=== PATIENT | female | born 1955 | race Hispanic/Latino ===

== ENCOUNTER → 2018-03-25 | Outpatient (CLI) | payer BC ==
--- NOTE | 2018-03-25 16:36 | Diagnostic Imaging Report ---
TECHNIQUE: Magnetic resonance imaging of the LEFT KNEE was performed WITHOUT injected contrast. HISTORY: Left knee pain COMPARISON: None available. FINDINGS: LIGAMENTS AND TENDONS: ACL: Intact PCL: Intact Collateral ligaments: Intact Iliotibial band: Unremarkable Popliteal tendon: Intact Extensor mechanism: Intact JOINT: Menisci: Medial: Horizontal tear of the body Lateral: Intact Articular Cartilage: Medial Compartment: Diffuse partial thickness cartilage loss Lateral Compartment: Diffuse partial thickness cartilage loss Patellofemoral Compartment: Diffuse curled loss with areas of full-thickness erosion and fissuring. Joint Fluid: Small joint effusion. BONE: No focal or infiltrative bone marrow replacing abnormality. No acute fracture. SOFT TISSUES: Otherwise, unremarkable. IMPRESSION: Medial meniscus horizontal tear to the body. Tricompartmental cartilage loss, patellofemoral compartment predominant. Signed by: Dr. Garrison Wiley M.D. on 03/25/2018 4:33 PM
== END ==
LOC: MRI 14:51
PROVIDERS: ATTEND Family Medicine
DX: S83.207A Unspecified tear of unspecified meniscus, current injury, left knee, initial encounter (principal)

== ENCOUNTER → 2018-04-09 | Outpatient (CLI) | payer BC ==
--- NOTE | 2018-04-09 14:47 | Diagnostic Imaging Report ---
History: Back and leg pain mainly on the right leg Comparison studies: None Technique: Sagittal, coronal and axial T2 , sagittal T1 and IR, axial spin density oblique. Intravenous contrast: None Findings: Number of lumbar vertebral bodies:5 Alignment: Mild grade 1 anterolisthesis of L5 over S1.No scoliosis. Pars defect is suspected on the left side of L5. Soft tissues: No T2 hyperintense inflammatory changes. Paraspinal muscles: No signal abnormalities. No atrophy. Lower thoracic cord:Normal in signal and morphology. The tip of the conus is at T12-L1. Cauda equina: No masses. No arachnoiditis. Vertebrae: Normal in height and signal intensity. No compression fractures, infection or neoplasm. Degenerative changes: L1-L2: No abnormalities. L2-L3: Disc degeneration with loss of T2 signal. Mild diffuse disc bulge without significant canal stenosis or foraminal narrowing. L3-L4: Disc degeneration with loss of T2 signal. Asymmetric left disc bulge with superimposed small central disc protrusion and mild facet hypertrophy results in no significant canal stenosis or foraminal narrowing. L4-L5: Disc degeneration with loss of T2 signal, decreased intervertebral space, endplate irregularities and minimal endplate edema. Diffuse disc bulge and moderate facet hypertrophy results in no significant canal stenosis and mild bilateral foraminal narrowing. Trace of fluid of the bilateral facet joints secondary to mild synovitis L5-S1: Disc degeneration with loss of T2 signal, decreased intervertebral space and mild endplate edematous changes. Mild facet hypertrophy results in moderate bilateral foraminal narrowing. Trace of fluid of the bilateral facet joints secondary to mild synovitis. Additional findings: None IMPRESSION: Grade 1 anterolisthesis of L5 over S1 with left pars defect. Moderate bilateral foraminal narrowing at L5-S1 secondary to grade 1 anterolisthesis and degenerative changes. Disc degeneration at the lower lumbar spine or significant at L4-L5 and L5-S1 with minimal Modic type I changes. Signed by: DR Alec Guerrero M.D. on 04/09/2018 2:44 PM
== END ==
LOC: MRI 11:21
PROVIDERS: ATTEND Orthopaedic Surgery Sports Medicine
DX: M54.16 Radiculopathy, lumbar region (principal)
CPT/HCPCS: 72148

== ENCOUNTER → 2018-04-20 | Outpatient (CLI) | payer BC ==
--- NOTE | 2018-04-21 07:05 | Diagnostic Imaging Report ---
EXAMINATION: MRI of the cervical spine without contrast HISTORY: Chronic neck pain radiating to the shoulders and upper extremities COMPARISON: None available TECHNIQUE: Sagittal T1, T2, STIR; axial T2, gradient echo. FINDINGS: Curvature: Normal lordosis. Vertebrae: No evidence of neoplasm, infection, or fracture. Foramen magnum: No mass, Chiari malformation, or basilar invagination. Spinal Cord: Normal size and signal intensity. Soft Tissues: Unremarkable. Degenerative changes: C1-C2: Unremarkable. C2-C3: Unremarkable. C3-C4: Unremarkable. C4-C5: Unremarkable C5-C6: Disc osteophyte complex formation, bilateral uncovertebral and facet arthropathy. Moderate right foraminal stenosis. Minimal canal narrowing. C6-C7: Disc osteophyte complex formation, mild uncovertebral and facet hypertrophy mainly on the left. Mild left foraminal stenosis. Minimal canal narrowing. C7-T1: Unremarkable. IMPRESSION: Mild degenerative changes at C5-C6 and C6-C7 with mild to moderate foraminal stenosis as detailed above. No evidence of nerve root compression. Signed by: Dr. Kasey Ayala M.D. on 04/21/2018 7:02 AM
== END ==
LOC: MRI 14:52
PROVIDERS: ATTEND Orthopaedic Surgery Sports Medicine
DX: M54.12 Radiculopathy, cervical region (principal)
CPT/HCPCS: 72141